=== PATIENT | male | born 1995 | race African-American/Black ===

== ENCOUNTER 2023-06-24 03:26 | Emergency (ER) | payer SELFPAY ==
[2023-06-24 03:31] VITALS: BP 153/85; PULSE 85; RESP 16; TEMP 37.7; O2SAT 97; BMI 27.0
[2023-06-24 03:36] VITALS: O2SAT 97
--- NOTE | 2023-06-24 03:40 | ED.URI1 ---
HPI - URI/Sore Throat General Chief Complaint: Upper Respiratory Infection Stated Complaint: SORE THROAT Time Seen by Provider: 06/24/23 03:40 Source: patient History of Present Illness HPI Narrative: This 28-year-old male presents for evaluation of a sore throat and change in his smell. He states for the past 2-3 days he has had a sore throat, chills, body aches and is starting to lose his sense of smell. He denies any chest pain or shortness of breath. He denies any nausea vomiting or diarrhea. He has a mild headache but no neck pain or stiffness. He is not having any difficulty breathing or swallowing. He denies any sick contacts. Related Data Allergies Allergy/AdvReac Type Severity Reaction Status Date / Time No Known Drug Allergies Allergy Verified 06/24/23 03:34 Review of Systems ROS Status of ROS 10 or more systems reviewed and unremarkable except as noted in history and below [facility] Social History Smoking status: Current every day smoker Exam Narrative Exam Narrative: Nurses note and vital signs reviewed and patient is not hypoxic. He has a low-grade fever orally at 99.9 General: The patient appears well and in no apparent distress. Patient is resting comfortably on cart. Skin: Warm, dry, no pallor noted. There is no rash noted. Head: Normocephalic, atraumatic Eye: Normal conjunctiva, no drainage, EOMI. PERRL Neck: Supple, no meningeal signs Ears, Nose, Mouth, and Throat: oral mucosa is moist, erythema of tonsillar pillars without exudate, No swelling of the tongue, uvula or pharyngeal soft tissues, no jose luis-tonsillar abscess Cardiovascular: Regular Rate and Rhythm S1S2, no murmur, rub or gallop Respiratory: Patient is in no distress, no accessory muscle use, lungs are clear to auscultation, no wheezing, rales or rhonchi Back: non-tender, no CVA tenderness bilaterally to percussion. GI: Normal bowel sounds, no tenderness to palpation, no masses appreciated. No rebound, guarding, or rigidity noted. Musculoskeletal: The patient has no evidence of calf tenderness, no pitting edema, symmetrical pulses noted bilaterally Neurological: A&O x4, normal speech Psychiatric: Cooperative Constitutional Vital Signs, click to edit/add: Last Vital Signs Temp 99.9 F 06/24/23 03:31 Pulse 85 06/24/23 03:31 Resp 16 06/24/23 03:31 BP 153/85 H 06/24/23 03:31 Pulse Ox 97 06/24/23 03:36 O2 Del Method Room Air 06/24/23 03:36 Course Vital Signs Vital signs: Vital Signs Temperature 99.9 F 06/24/23 03:31 Pulse Rate 85 06/24/23 03:31 Respiratory Rate 16 06/24/23 03:31 Blood Pressure 153/85 H 06/24/23 03:31 Pulse Oximetry 97 06/24/23 03:31 Oxygen Delivery Method Room Air 06/24/23 03:31 Temperature 99.9 F 06/24/23 03:31 Pulse Rate 85 06/24/23 03:31 Respiratory Rate 16 06/24/23 03:31 Blood Pressure 153/85 H 06/24/23 03:31 Pulse Oximetry 97 06/24/23 03:36 Oxygen Delivery Method Room Air 06/24/23 03:36 MDM - URI/Sore Throat MDM Narrative Medical decision making narrative: 38-year-old male presents for evaluation of 2-3 days of chills, body aches, sore throat. He also complained of decrease in his sense of smell. He was noted to have a low-grade fever at triage. His posterior pharynx is erythematous with no exudate. He does not have any sign of peritonsillar abscess. Strep testing and Covid 19 testing are both normal. He was medicated emergency department with Tylenol and ibuprofen. He remains hemodynamically stable. The results of his lab test were discussed with him. He'll be discharged home with a note for work for today and a prescription for ibuprofen 600 mg. I encouraged him to rest, drink plenty of fluids and use medications as needed for fever or pain. Lab Data Labs: Lab Results 06/24/23 Range/Units 03:58 SARS-CoV-2 (PCR) Negative (NEGATIVE) Streptococcus Screen Negative Discharge Plan Discharge Chief Complaint: Upper Respiratory Infection Clinical Impression: Upper respiratory infection, Viral infection Time of Disposition Decision: 04:26 Condition: Good Instructions: Pharyngitis (ED), Upper Respiratory Infection (ED), Viral Syndrome (ED) Stand Alone Forms: Portal Instructions Referrals: Physician,Non-Staff, MD [Primary Care Provider] - 1 week
[2023-06-24] MEDS: IBUPROFEN 600 MG TABLET PO (04:08)
[2023-06-24] MEDS: ACETAMINOPHEN 325 MG TABLET 650 MG PO (04:08)
[2023-06-24 04:13] LABS: Internal Control Within Normal Limits; Strep A Antigen Screen Negative
[2023-06-24 04:19] LABS: SARS-CoV-2 Ag NEGATIVE (NEGATIVE)
[2023-06-24 15:51] LABS: SARS-CoV-2 NAA NOT DETECTED (NOT DETECTE)
== END 2023-06-24 04:34 | disposition home or self-care (01) ==
PROVIDERS: Emergency Provider Emergency Medicine
DX: J06.9 Acute upper respiratory infection, unspecified (principal); F17.210 Nicotine dependence, cigarettes, uncomplicated; Z20.822 Contact with and (suspected) exposure to COVID-19
CPT/HCPCS: 87070; 87635; 87811; 87880; 99283; U0003

== ENCOUNTER 2023-07-10 09:00 | Emergency (ER) | payer SELFPAY ==
[2023-07-10 09:09] VITALS: BP 138/82; PULSE 72; RESP 18; TEMP 36.7; O2SAT 97; BMI 27.0
--- NOTE | 2023-07-10 09:13 | XR_ITS ---
[facility] [address] [address] Patient Name: ELISABETH BATES MRN: [facility]:[id number] date: 1995 Sex: M Assigned Patient Location: ED.MAIN Current Patient Location: ER Accession/Order Number: [id number] Exam Date: 07/10/2023 09:20 Report Date: 07/10/2023 09:48 At the request of: HOLDEN GANN Procedure: XR ankle LT min 3V PROCEDURE: XR ankle LT min 3V HISTORY: twisted ; acute left ankle pain COMPARISON: None. FINDINGS: BONES:Distal to the medial malleolus are 2 tiny calcifications which appear to be corticated. Intact ankle mortise and lateral malleolus. SOFT TISSUES:Mild soft tissue swelling. EFFUSION:None visible. OTHER: Negative. XR/XR ankle LT min 3V IMPRESSION: 1. Findings distal to the medial malleolus favoring sequela of remote injury, however, acute avulsion fracture cannot be completely excluded. Electronically authenticated by: ROSIO ARZATE Date: 07/10/2023 09:48
--- NOTE | 2023-07-10 09:13 | ED.LOWEXI1 ---
HPI - Extremity Injury (Lower) General Chief Complaint: Extremity Injury, Lower Stated Complaint: LOWER EXTREMITY INJURY-L ANKLE, FALL Time Seen by Provider: 07/10/23 09:06 Source: patient Mode of arrival: walk-in Limitations: no limitations History of Present Illness HPI Narrative: 28-year-old male presents for left ankle pain. She was playing softball last night and twisted it sliding into a base. He points to the anterior aspect of the ankle. The foot and knee don't hurt. He's been able to walk. It is moderate and worse when he walks. Related Data Previous Rx's Medication Instructions Recorded ibuprofen 800 mg tablet 800 mg PO Q8H PRN pain #20 tabs 07/10/23 Allergies Allergy/AdvReac Type Severity Reaction Status Date / Time No Known Drug Allergies Allergy Verified 06/24/23 03:34 Review of Systems ROS Narrative A ten point review of systems is negative except as noted above. PFSH PFSH Social History Smoking status: Current some day smoker Exam Narrative Exam Narrative: Nurses note and vital signs reviewed and patient is not hypoxic. General: The patient appears well and in no apparent distress. Patient is resting comfortably on cart. Skin: Warm, dry, no pallor noted. There is no rash noted. Head: Normocephalic, atraumatic Eye: Normal conjunctiva, no drainage Ears, Nose, Mouth, and Throat: oral mucosa is moist. Nares patent. Cardiovascular: Regular Rate and Rhythm Respiratory: Patient is in no distress, no accessory muscle use Back: non-tender, no CVA tenderness bilaterally to percussion. GI: nontender Musculoskeletal: the left ankle is examined. No obvious swelling. No tenderness in the foot. Lateral malleolus nontender. Anterior ankle is mildly tender and the medial malleolus is minimally tender. Skin intact. Neurological: A&O , normal speech Psychiatric: Cooperative Constitutional Vital Signs, click to edit/add: Last Vital Signs Temp 98.0 F 07/10/23 09:09 Pulse 72 07/10/23 09:09 Resp 18 07/10/23 09:09 BP 138/82 07/10/23 09:09 Pulse Ox 97 07/10/23 09:09 O2 Del Method Room Air 07/10/23 09:09 Course Vital Signs Vital signs: Vital Signs Temperature 98.0 F 07/10/23 09:09 Pulse Rate 72 07/10/23 09:09 Respiratory Rate 18 07/10/23 09:09 Blood Pressure 138/82 07/10/23 09:09 Pulse Oximetry 97 07/10/23 09:09 Oxygen Delivery Method Room Air 07/10/23 09:09 Temperature 98.0 F 07/10/23 09:09 Pulse Rate 72 07/10/23 09:09 Respiratory Rate 18 07/10/23 09:09 Blood Pressure 138/82 07/10/23 09:09 Pulse Oximetry 97 07/10/23 09:09 Oxygen Delivery Method Room Air 07/10/23 09:09 MDM - Extremity Injury (Lower) MDM Narrative Medical decision making narrative: questionable ankle fracture of the medial malleolus is identified. This is his area of pain and he has no history of an ankle fracture. Sourav wrap and air splint applied and application of these were checked by me and found to be appropriate, he is neurovascularly intact. He is referred to podiatry. Treatment diagnosis and follow-up were discussed with the patient. Differential Diagnosis Differential diagnosis: Likely ankle sprain and strain and other (ankle fracture) Imaging Data left ankle x-ray: Radiologist's impression: Procedure: XR ankle LT min 3V PROCEDURE: XR ankle LT min 3V HISTORY: twisted ; acute left ankle pain COMPARISON: None. FINDINGS: BONES:Distal to the medial malleolus are 2 tiny calcifications which appear to be corticated. Intact ankle mortise and lateral malleolus. SOFT TISSUES:Mild soft tissue swelling. EFFUSION:None visible. OTHER: Negative. IMPRESSION: 1. Findings distal to the medial malleolus favoring sequela of remote injury, however, acute avulsion fracture cannot be completely excluded. Electronically authenticated by: ROSIO ARZATE Date: 07/10/2023 09:48 Discharge Plan Discharge Chief Complaint: Extremity Injury, Lower Clinical Impression: Ankle fracture, left Patient Disposition: Home, Self-Care Time of Disposition Decision: 10:29 Condition: Good Mode of Transportation: Private Vehicle Prescriptions / Home Meds: New ibuprofen 800 mg tablet 800 mg PO Q8H PRN (Reason: pain) Qty: 20 0RF Instructions: Ankle Fracture (ED) Additional Instructions: Follow-up with Dr. Daniels Stand Alone Forms: Portal Instructions Referrals: Physician,Non-Staff, MD [Primary Care Provider] - 1 week
[2023-07-10 10:51] VITALS: BP 145/80; PULSE 84; RESP 16; TEMP 36.4; O2SAT 96
== END 2023-07-10 11:01 | disposition home or self-care (01) ==
PROVIDERS: Emergency Provider Emergency Medicine
DX: S82.892A Other fracture of left lower leg, initial encounter for closed fracture (principal); X50.1XXA Overexertion from prolonged static or awkward postures, initial encounter; Y93.64 Activity, baseball; F17.210 Nicotine dependence, cigarettes, uncomplicated
CPT/HCPCS: 73610; 99283